=== PATIENT | male | born 2000 | race Two or more races ===

== ENCOUNTER 2020-10-18 13:26 | Emergency (ER) | payer OTHER ==
[~2020-10-18] VITALS: Ht 167.6 cm; Wt 68.0 kg
[2020-10-18 13:36] VITALS: BP 129/81
[2020-10-18] MEDS ORDERED: BENZ-13 PO (13:50)
[2020-10-18] MEDS ORDERED: GUAI600T53 PO (13:50)
== END 2020-10-18 14:20 | disposition home or self-care (01) ==
LOC: ER 13:50
DX: J06.9 Acute upper respiratory infection, unspecified (principal); Z88.8 Allergy status to other drugs, medicaments and biological substances